=== PATIENT | male | born 1980 ===

== ENCOUNTER 2020-09-22 10:21 | Emergency (ER) | payer SELFPAY ==
[2020-09-22 10:44] LABS: BASOPHILS % (AUTO) 0 % (0-10); EOSINOPHILS % (AUTO) 0 % (0-10); HEMATOCRIT 48 % (35-52); HEMOGLOBIN 16.1 G/DL (11.5-16.0); LYMPHOCYTES # (AUTO) 2.1 X 10^3 (1.0-4.0); LYMPHOCYTES % (AUTO) 26 % (12-44); MEAN CORPUSCULAR HEMOGLOBIN 29 PG (25-34); MEAN CORPUSCULAR HGB CONC 34 G/DL (32-36); MEAN CORPUSCULAR VOLUME 87 FL (80-99); MEAN PLATELET VOLUME 10.2 FL (7.4-10.4); MONOCYTES % (AUTO) 9 % (0-12); NEUTROPHILS # (AUTO) 5.2 X 10^3 (1.8-7.8); NEUTROPHILS % (AUTO) 64 % (42-75); PLATELET COUNT 271 10^3/uL (130-400); WHITE BLOOD COUNT 8.1 10^3/uL (4.3-11.0)
[2020-09-22 10:45] LABS: MONOCYTES # (AUTO) 0.7 X 10^3 (0.0-1.0)
[2020-09-22] MEDS ORDERED: FAMOTIDINE 20MG/2ML IV (PEPCID) IVP ONE (10:45)
[2020-09-22] MEDS ORDERED: HALOPERIDOL 5 MG/ML (HALDOL) VIAL IM ONE (10:45)
[2020-09-22] MEDS ORDERED: NS IV 1000 ML 1,000 ML IV SCH (10:45)
[2020-09-22] MEDS ORDERED: ONDANSETRON 4 MG/2 ML (SDV) Z0FRAN IVP ONE (10:45)
[2020-09-22 11:08] LABS: BACTERIA,URINE FEW /HPF; BILIRUBIN,URINE NEGATIVE (NEGATIVE); CLARITY,URINE CLEAR; COLOR,URINE YELLOW; GLUCOSE, URINE (UA) NEGATIVE (NEGATIVE); KETONES,URINE NEGATIVE (NEGATIVE); LEUKOCYTE ESTERASE ,URINE NEGATIVE (NEGATIVE); NITRITE,URINE NEGATIVE (NEGATIVE); PROTEIN,URINE NEGATIVE (NEGATIVE); WBC,URINE 0-2 /HPF
[2020-09-22 11:09] LABS: ALKALINE PHOSPHATASE 113 U/L (40-136); BILIRUBIN,TOTAL 0.3 MG/DL (0.1-1.0); BUN/CREATININE RATIO 10; CALCIUM 8.8 MG/DL (8.5-10.1); CARBON DIOXIDE 20 MMOL/L (21-32); CHLORIDE 103 MMOL/L (98-107); CREATININE SERUM 0.83 MG/DL (0.60-1.30); GFR ESTIMATED > 60; GLUCOSE 128 MG/DL (70-105); POTASSIUM 3.9 MMOL/L (3.6-5.0); SODIUM 139 MMOL/L (135-145)
[2020-09-22 11:10] LABS: ALANINE AMINOTRANSFERASE 51 U/L (0-55); ALBUMIN 4.9 GM/DL (3.2-4.5); LIPASE 39 U/L (8-78); TOTAL PROTEIN 7.9 GM/DL (6.4-8.2)
[2020-09-22 11:17] LABS: AMPHETAMINE SCREEN, URINE NEGATIVE (NEGATIVE); BARBITURATE SCREEN URINE NEGATIVE (NEGATIVE); BENZODIAZEPINES SCREEN URINE NEGATIVE (NEGATIVE); CANNABINOID SCREEN, URINE NEGATIVE (NEGATIVE); COCAINE SCREEN URINE POSITIVE (NEGATIVE); METHADONE STAT NEGATIVE (NEGATIVE); METHAMPHETAMINE SCREEN URINE S NEGATIVE (NEGATIVE); OPIATE SCREEN URINE NEGATIVE (NEGATIVE); OXYCODONE STAT NEGATIVE (NEGATIVE); PROPOXYPHENE STAT NEGATIVE (NEGATIVE); TRICYCLIC ANTIDEPRESSANTS SCRE NEGATIVE (NEGATIVE)
[2020-09-22] MEDS ORDERED: CATHETER FLUSH 10 ML SYR IV PRN (11:30)
[2020-09-22] MEDS ORDERED: HOLD METFORMIN - RECEIVED CONTRAST 20 ML VIAL IV SCH (11:30)
[2020-09-22] MEDS ORDERED: IOHEXOL 350 MG/ML 100 ML (OMNIPAQUE 350) VIAL IV ONE (11:30)
[2020-09-22] MEDS ORDERED: NS 100 ML (IVPB) BAG IV ONE (11:30)
--- NOTE | 2020-09-22 11:56 | Diagnostic Imaging Report ---
PROCEDURE: CT abdomen and pelvis with contrast. TECHNIQUE: Multiple contiguous axial images were obtained through the abdomen and pelvis after administration of intravenous contrast. Auto Exposure Controls were utilized during the CT exam to meet ALARA standards for radiation dose reduction. All CT scans use one or more of the following dose optimizing techniques: automated exposure control, MA and/or KvP adjustment based on patient size and exam type or iterative reconstruction. INDICATION: Mid abdominal pain There are no prior studies available for comparison. The liver is homogeneous and not enlarged. The spleen, pancreas, adrenals, gallbladder, kidneys, aorta and inferior vena cava and portal vein are unremarkable for an acute abnormality. The stomach is not well-distended and consequently difficult to assess. There is no retroperitoneal iliac chain or inguinal adenopathy identified. The urinary bladder is grossly unremarkable as is the prostate gland. The appendix was visualized and is not abnormally thickened. There is gas in both the large and small bowel in a nonspecific fashion. The bone windows are unremarkable for fracture or for destructive lesion. The lung bases are clear. IMPRESSION: There is no acute abnormality of the abdomen or pelvis. Dictated by: Dictated on workstation # [id number]
--- NOTE | 2020-09-22 12:15 | ED Abdominal Pain ---
General Chief Complaint: Abdominal/GI Problems Stated Complaint: ABD PAIN Nursing Triage Note: Patient brought in by [facility] for abdominal pain. Has been drinking last night and has hx of pancreatitis. Sepsis Screen: No Definite Risk Source of Information: Patient Exam Limitations: No Limitations History of Present Illness Date Seen by Provider: September 22, 2020 Time Seen by Provider: 11:15 Initial Comments Patient is a 39-year-old male brought into the ED by [facility] complaining of diffuse abdominal pain since this morning. Patient reportedly been out drinking copious amount of alcohol last evening, smells of EtOH intoxicants and has injected pupils. He does have a history of pancreatitis. Abdominal pain is diffuse. It is rated moderate to severe worse with palpation and ambulation. It is not relieved by rest. Patient is nauseated without vomiting. No reported hematemesis coffee-ground emesis or melena. No fever chills, sweats. Denies chest pain palpitation shortness of breath. No fever cough, sore throat. No reports of trauma or headache. No other acute symptoms or complaints. Timing/Duration: 4-6 Hours Severity/Quality: Other Location: Other Radiation: Other Activities at Onset: Other Modifying Factors: Improves With Other Associated Symptoms: Other Allergies and Home Medications Allergies Coded Allergies: No Known Drug Allergies (Unverified , 09/22/20) Patient Home Medication List Home Medication List Reviewed: Yes Review of Systems Review of Systems Constitutional: see HPI EENTM: See HPI Cardiovascular: See HPI Gastrointestinal: See HPI Genitourinary: See HPI Musculoskeletal: see HPI Skin: see HPI Psychiatric/Neurological: See HPI Hematologic/Lymphatic: See HPI Past [id number] Hx Patient Social History Alcohol Use: Occasionally Uses Alcohol Beverage of Choice: Beer Smoking Status: Current Everyday Smoker Type Used: Cigarettes 2nd Hand Smoke Exposure: Yes Recent Infectious Disease Expo: No Recent Hopitalizations: No Seasonal Allergies Seasonal Allergies: No Past Medical History Surgeries: No Respiratory: No Cardiac: No Neurological: No Genitourinary: No Gastrointestinal: Yes Pancreatitis Musculoskeletal: No Endocrine: No HEENT: No Cancer: No Psychosocial: Yes Anxiety Integumentary: No Physical Exam Vital Signs Vital Signs - First Documented 09/22/20 10:31 Temp 36.7 Pulse 84 Resp 16 B/P (MAP) 125/83 (97) Pulse Ox 94 Capillary Refill : Less Than 3 Seconds Height/Weight/BMI Height: '" Weight: lbs. oz. kg; BMI Method: General Appearance: no apparent distress, other (anxious) HEENT: PERRL/EOMI, pharynx normal, other (Partial skin avulsion of inner upper lobe of ear. Well approximated) Neck: non-tender, supple Respiratory: chest non-tender, lungs clear Cardiovascular: normal peripheral pulses, regular rate, rhythm Gastrointestinal: soft, distended, tenderness, other Extremities: normal range of motion, non-tender Back: normal inspection Neurologic/Psychiatric: monument setter II-XII nml as tested, no motor/sensory deficits, oriented x 3 Lymphatic: no adenopathy Focused Exam Sepsis Stage: Ruled Out Progress/Results/Core Measures Results/Orders Lab Results Laboratory Tests Test 09/22/20 10:31 09/22/20 10:35 Range/Units Urine Color YELLOW Urine Clarity CLEAR Urine pH 6.0 5-9 Urine Specific [place] <=1.005 1.016-1.022 Urine Protein NEGATIVE NEGATIVE Urine Glucose (UA) NEGATIVE NEGATIVE Urine Ketones NEGATIVE NEGATIVE Urine Nitrite NEGATIVE NEGATIVE Urine Bilirubin NEGATIVE NEGATIVE Urine Urobilinogen 0.2 < = 1.0 MG/DL Urine Leukocyte Esterase NEGATIVE NEGATIVE Urine RBC (Auto) NEGATIVE NEGATIVE Urine RBC NONE /HPF Urine WBC 0-2 /HPF Urine Squamous Epithelial Cells 2-5 /HPF Urine Crystals NONE /LPF Urine Bacteria FEW H /HPF Urine Casts NONE /LPF Urine Mucus NEGATIVE /LPF Urine Culture Indicated YES Urine Opiates Screen NEGATIVE NEGATIVE Urine Oxycodone Screen NEGATIVE NEGATIVE Urine Methadone Screen NEGATIVE NEGATIVE Urine Propoxyphene Screen NEGATIVE NEGATIVE Urine Barbiturates Screen NEGATIVE NEGATIVE Ur Tricyclic Antidepressants Screen NEGATIVE NEGATIVE Urine Phencyclidine Screen NEGATIVE NEGATIVE Urine Amphetamines Screen NEGATIVE NEGATIVE Urine Methamphetamines Screen NEGATIVE NEGATIVE Urine Benzodiazepines Screen NEGATIVE NEGATIVE Urine Cocaine Screen POSITIVE H NEGATIVE Urine Cannabinoids Screen NEGATIVE NEGATIVE White Blood Count 8.1 4.3-11.0 10^3/uL Red Blood Count 5.50 4.35-5.85 10^6/uL Hemoglobin 16.1 H 11.5-16.0 G/DL Hematocrit 48 35-52 % Mean Corpuscular Volume 87 80-99 FL Mean Corpuscular Hemoglobin 29 25-34 PG Mean Corpuscular Hemoglobin Concent 34 32-36 G/DL Red Cell Distribution Width 12.5 10.0-14.5 % Platelet Count 271 130-400 10^3/uL Mean Platelet Volume 10.2 7.4-10.4 FL Immature Granulocyte % (Auto) 0 % Neutrophils (%) (Auto) 64 42-75 % Lymphocytes (%) (Auto) 26 12-44 % Monocytes (%) (Auto) 9 0-12 % Eosinophils (%) (Auto) 0 0-10 % Basophils (%) (Auto) 0 0-10 % Neutrophils # (Auto) 5.2 1.8-7.8 X 10^3 Lymphocytes # (Auto) 2.1 1.0-4.0 X 10^3 Monocytes # (Auto) 0.7 0.0-1.0 X 10^3 Eosinophils # (Auto) 0.0 0.0-0.3 10^3/uL Basophils # (Auto) 0.0 0.0-0.1 10^3/uL Immature Granulocyte # (Auto) 0.0 0.0-0.1 10^3/uL Sodium Level 139 135-145 MMOL/L Potassium Level 3.9 3.6-5.0 MMOL/L Chloride Level 103 98-107 MMOL/L Carbon Dioxide Level 20 L 21-32 MMOL/L Anion Gap 16 H 5-14 MMOL/L Blood Urea Nitrogen 8 7-18 MG/DL Creatinine 0.83 0.60-1.30 MG/DL Estimat Glomerular Filtration Rate > 60 BUN/Creatinine Ratio 10 Glucose Level 128 H 70-105 MG/DL Calcium Level 8.8 8.5-10.1 MG/DL Corrected Calcium 8.5-10.1 MG/DL Total Bilirubin 0.3 0.1-1.0 MG/DL Aspartate Amino Transf (AST/SGOT) 32 5-34 U/L Alanine Aminotransferase (ALT/SGPT) 51 0-55 U/L Alkaline Phosphatase 113 40-136 U/L Total Protein 7.9 6.4-8.2 GM/DL Albumin 4.9 H 3.2-4.5 GM/DL Lipase 39 8-78 U/L My Orders Orders - MICHOACANO MIRZA DO Cbc With Automated Diff (09/22/20 10:33) Comprehensive Metabolic Panel (09/22/20 10:33) Lipase (09/22/20 10:33) Ondansetron Injection (Zofran Injectio (09/22/20 10:45) Ns Iv 1000 Ml (Sodium Chloride 0.9%) (09/22/20 10:45) Famotidine Injection (Pepcid Injection) (09/22/20 10:45) Haloperidol Injection (Haldol Injectio (09/22/20 10:45) Urinalysis (09/22/20 10:59) Drug Screen Stat (Urine) (09/22/20 10:59) Urine Culture (09/22/20 10:31) Ct Abdomen/Pelvis W (09/22/20 11:20) Iohexol Injection (Omnipaque 350 Mg/Ml 1 (09/22/20 11:30) Received Contrast (Hold Metformin- Contr (09/22/20 11:30) Sodium Chloride Flush (Catheter Flush Sy (09/22/20 11:30) Ns (Ivpb) (Sodium Chloride 0.9% Ivpb Bag (09/22/20 11:30) Medications Given in ED Current Medications Medications Dose Ordered Sig/Shira Route Start Time Stop Time Status Last Admin Dose Admin Famotidine 20 mg ONCE ONCE IVP 09/22/20 10:45 09/22/20 10:46 DC 09/22/20 10:41 20 MG Haloperidol Lactate 2.5 mg ONCE ONCE IM 09/22/20 10:45 09/22/20 10:46 DC 09/22/20 10:41 2.5 MG Iohexol 100 ml ONCE ONCE IV 09/22/20 11:30 09/22/20 11:31 DC 09/22/20 11:38 100 ML Ondansetron HCl 4 mg ONCE ONCE IVP 09/22/20 10:45 09/22/20 10:46 DC 09/22/20 10:41 4 MG Sodium Chloride 10 ml NEEDED PRN IV 09/22/20 11:30 09/22/20 11:38 10 ML Sodium Chloride 100 ml ONCE ONCE IV 09/22/20 11:30 09/22/20 11:31 DC 09/22/20 11:38 80 ML Vital Signs/I&O 09/22/20 10:31 Temp 36.7 Pulse 84 Resp 16 B/P (MAP) 125/83 (97) Pulse Ox 94 Blood Pressure Mean: 97 Departure Communication (Admissions) CT abdomen pelvis: No acute abnormalities per radiology report. EKG 09/22/2020, 9:39: Normal sinus rhythm, rate 93, no acute ST-T wave changes, atypical right bundle branch block, QTc 468 Labs imaging studies and EKG reviewed. Patient with diffuse abdominal pain. Pepcid, Haldol given with clinical improvement. Patient had two large bowel movements in the emergency department that appeared to relieve his symptoms. CT scan reassuring. Lab work, lipase is negative. Abdomen soft nontender on repeat evaluation. Patient will be discharged home with typical abdominal pain return to the emergency department instructions. He is discharged to the custody of his significant other. Patient and family verbalized understanding agreement discharge instructions prior to departure. Right ear external ear lobe, cleansed and closed with wound adhesive. Impression Primary Impression: Abdominal pain Additional Impression: Cocaine abuse Disposition: HOME, SELF-CARE Condition: Stable Departure-Patient Inst. Decision time for Depature: 12:23 Referrals: NO,LOCAL PHYSICIAN (PCP/Family) Primary Care Physician Patient Instructions: Acute Pain, Adult (DC), Drug Abuse Treatment, Laceration Repair With Glue (DC) Add. Discharge Instructions: Please go home and avoid alcohol and other substance use. Increase daily fluid and fiber intake. Take Pepcid 20 mg OTC twice daily. Follow-up with your PCP in 3 to 5 days for reevaluation. Return to the ED if new or worsening symptoms. All discharge instructions reviewed with patient and/or family. Voiced understanding. MICHOACANO MIRZA DO September 22, 2020 12:14
[2020-09-22 13:25] VITALS: BP 126/77
== END 2020-09-22 13:25 | disposition home or self-care (01) ==
LOC: ER FS 10:22 → EDSEX 10:22 → ER FS 13:25
DX: R10.84 Generalized abdominal pain (principal); S01.311A Laceration without foreign body of right ear, initial encounter; F14.10 Cocaine abuse, uncomplicated; F17.210 Nicotine dependence, cigarettes, uncomplicated; X58.XXXA Exposure to other specified factors, initial encounter
CPT/HCPCS: 36415; 74177; 80053; 80306; 81000; 83690; 85025; 87088